=== PATIENT | male | born 2000 ===

== ENCOUNTER 2023-03-14 19:01 | Emergency (ER) | payer SELFPAY ==
[~2023-03-14] VITALS: Ht 167.6 cm; Wt 79.4 kg
[2023-03-14 20:03] VITALS: BP 148/106
[2023-03-14] MEDS ORDERED: IBUP400 PO (21:12)
== END 2023-03-14 21:25 | disposition home or self-care (01) ==
LOC: ER 19:01
DX: F11.23 Opioid dependence with withdrawal (principal)
CPT/HCPCS: 96374; 99284-25; A9270; J1885